=== PATIENT | female | born 1965 | race African-American/Black ===

== ENCOUNTER 2017-08-30 14:36 | Outpatient (CLI) | payer BC | END 2017-08-30 14:37 | disposition home or self-care (01) | LOC: CTENTCT 14:36 | PROVIDERS: ATTEND Specialist | DX: R51 Headache (principal) | CPT/HCPCS: 70486 ==

== ENCOUNTER 2017-09-25 16:07 | Outpatient (CLI) | payer BC | END 2017-09-25 16:08 | disposition home or self-care (01) | LOC: BICMRI 16:07 | PROVIDERS: ATTEND Obstetrics & Gynecology | DX: Z15.01 Genetic susceptibility to malignant neoplasm of breast (principal) | CPT/HCPCS: C8908 ==

== ENCOUNTER 2018-02-10 12:11 | Outpatient (CLI) | payer BC ==
--- NOTE | 2018-02-10 15:16 | MRI ---
MRI OF THE BILATERAL BREASTS WITHOUT AND WITH CONTRAST: History: 52-year-old female with genetic susceptibility to malignancy. Positive for BRCA. Comparison: 09-25-17 Technique: Multiplanar, multisequence MRI images were obtained of the bilateral breasts without and with IV cont rast. FINDINGS: Scattered fibroglandular breast tissue is seen. Minimal background parenchymal enhancement is seen. N o suspicious mass or suspicious enhancement is seen in either breasts. No axillary adenopathy is seen. No internal mammillary lymph nodes are identified. There are small fo ci of high T2 signal in the left lobe of the liver and adjacent the falciform ligament. It is difficu lt to see these lesions on the post contrast examination secondary to the artifact from the patient's heart. These may represent with small hemangiomas or cysts and are stable compared to the prior exam ination. No marrow signal abnormality is present. IMPRESSION: BIRADS category I - negative. Annual screening mammography is recommended. In addition, annual breast MRI is recommended given the BRCA positive status.
--- NOTE | 2018-02-10 16:15 | BD ---
DEXA BONE MINERAL DENSITY STUDY: HISTORY: Osteoporosis screening. COMPARISON: None. FINDINGS: Lumbar Spine: BMD (g/cm2) L1 0.884 T-Score: -1.0, 0.0 L2 0.841 T-Score: -1.7, -0.7 L3 0.928 T-Score: -1.4, -0.3 L4 0.930 T-Score: -1.2, -0.1 L1-L4 0.899 T-Score: -1.3, -0.3 WHO classification osteopenia. Femoral Neck: 0.830 T-Score: -0.2, 0.9 Total Femur: 1.066 T-Score: 1.0, 1.7 WHO classification normal. TEN-YEAR FRACTURE RISK: Major osteoporotic fracture 5.1% and hip fracture 0.1%. Impression: Osteopenia of the lumbar spine with fracture risk as above. POS: GERBER
== END 2018-02-10 12:12 | disposition home or self-care (01) ==
LOC: BICMRI 12:11
PROVIDERS: ATTEND Internal Medicine Hematology & Oncology
DX: Z12.31 Encounter for screening mammogram for malignant neoplasm of breast (principal); Z13.820 Encounter for screening for osteoporosis; Z15.01 Genetic susceptibility to malignant neoplasm of breast; Z78.0 Asymptomatic menopausal state; M85.88 Other specified disorders of bone density and structure, other site; Z80.3 Family history of malignant neoplasm of breast
CPT/HCPCS: 77063; 77067; 77080; C8908

== ENCOUNTER 2018-05-15 10:38 | Day surgery (SDC) | payer BC ==
[2018-05-14 16:03] VITALS: BMI 27.4
[~2018-05-15 10:38] MED LIST: Dexamethasone 20 MG/5 ML VIAL ONE; Lidocaine 1% PF 5 ML VIAL ONE; Ondansetron PF 4 MG/2 ML Vial ONE; PHENYLEPHRINE-NS 100 MCG/ML 10 ML SYRINGE ONE; PROPOFOL 200 MG/20 ML VIAL ONE; Rocuronium Bromide 10 MG/ML (10ML VIAL) ONE
[2018-05-15] MEDS ORDERED: Oxymetazoline HCl 0.05% ( 15 ML ) ONE (11:58)
[2018-05-15] MEDS ORDERED: Bacitracin Zinc Ointment 30 gm TUBE ONE (13:00)
[2018-05-15] MEDS ORDERED: Lidocaine 1% w/Epinephrine 1:100K 20 ML VIAL ONE (13:00)
[2018-05-15] MEDS ORDERED: EPINEPHrine 1 MG/ML AMP ONE (13:00)
[2018-05-15] MEDS ORDERED: Fentanyl 100 MCG/2 ML VIAL ONE ×4 (13:42→15:33)
[2018-05-15] MEDS ORDERED: methylPREDNISolone Acetate 40 mg/ml Vial ONE (13:42)
--- NOTE | 2018-05-16 09:34 | OP ---
DATE OF PROCEDURE: 05/15/2018 PREOPERATIVE DIAGNOSES: 1. Rhinogenic headache. 2. Right septal spur. 3. Deviated septum. 4. Hypertrophied inferior turbinates. POSTOPERATIVE DIAGNOSES: 1. Rhinogenic headache. 2. Right septal spur. 3. Deviated septum. 4. Hypertrophied inferior turbinates. PROCEDURES PERFORMED: 1. Septoplasty. 2. Bilateral nasal endoscopy with submucosal resection of inferior turbinates. PROCEDURE IN DETAIL: SEPTOPLASTY: After local anesthesia was infiltrated into the submucoperichondrial plane, a standard Suleman incision was made with a #15 blade down to the level of the septal cartilage. The caudal elevator was used to elevate the mucoperichondrium from the underlying cartilage. We then proceeded beyond the bony cartilaginous junction and elevated the bony periosteum as well. Great attention was paid to the spur to prevent rent formation in the septal flap. A transcartilaginous incision was then made, while preserving an adequate dorsal and caudal cartilaginous strut for tip support. The deformed cartilage was removed and disarticulated from the bony cartilaginous junction and maxillary crest. This was placed in saline and would later be crushed and returned to the mucoperichondrial envelope. We then elevated the contralateral periosteum from the bony cartilaginous region and removed the deformed portions of the bone and bony spurs. The cartilage was then crushed and placed back into the mucoperichondrial envelope and the mucosa was re-approximated with a quilting stitch composed of rapidly absorbent gut suture. The [place] incision was also closed with interrupted gut suture. At the completion of the case, Pérez splints were placed and suture secured to the caudal septum. BILATERAL NASAL ENDOSCOPY WITH SUBMUCOSAL RESECTION OF INFERIOR TURBINATES: After consent was obtained, the patient was identified, brought to the operating room, and placed on the operating room table in the supine position. Consent was obtained, notifying the patient of the possibility of additional infections, bleeding, brain injury, and eye/orbital injury. The patient was placed on the operating room table, and general endotracheal anesthesia and intravenous access was obtained. The patient was then positioned, prepped and draped for endoscopic sinus surgery. Nasal preparation included trimming nasal vestibular hairs and spraying in topical Afrin. We then placed Afrin topical solution on nasal pledgets and strategically located them intranasally. The perinasal mucosa was injected with 1% lidocaine with 1:100,000 epinephrine in the submucoperichondrial plane of the septum, lateral nasal wall, and anterior to the uncinate. The patient was then prepped and draped in a sterile fashion and positioned for endoscopic sinus surgery. With the 0-degree endoscope, the patient underwent systematic nasal endoscopy. There were no suspicious internasal masses or lesions identified. We then focused our attention to the osteomeatal complex region under the middle turbinate. The inferior turbinates were visualized with a 0 degree endoscope and outfractured with a Elias elevator. The inferior medial aspect was cauterized with the electrocautery. Hemostasis was obtained . After adequate airway was established, we turned our attention to the contralateral side and used a similar procedure. Again, a Elias elevator was used to outfracture inferior turbinates under endoscopic visualization. With a suction cautery, the free inferior medial aspect was cauterized under direct visualization along the length of the inferior turbinate. At this point, we then turned our attention to the contralateral side and proceeded with endoscopic sinus surgery. At the completion of the case, Rice keel splints were placed in the ethmoid cavities after the ethmoidectomy. There were no complications. The patient tolerated the procedure well and was discharged to the recovery room in stable condition prior to return to the preoperative day stay with ultimate discharge home. Prescriptions for pain medication and antibiotics were provided. The patient received intramuscular Depo-Medrol during the case. Job ID: [id number]
--- NOTE | 2018-05-16 16:44 | EKG ---
Test Reason : PREOP Blood Pressure : / mmHG Vent. Rate : 067 BPM Atrial Rate : 067 BPM P-R Int : 160 ms QRS Dur : 070 ms QT Int : 404 ms P-R-T Axes : 056 036 032 degrees QTc Int : 426 ms Normal sinus rhythm Normal ECG No previous ECGs available Confirmed by DR. Mariah MYRICK ([id number]) on 05/16/2018 4:44:00 PM Referred By: REGGIE Confirmed By:DR. Mariah MYRICK
== END 2018-05-15 16:40 | disposition home or self-care (01) ==
LOC: SDC 10:38
PROVIDERS: ATTEND Specialist
DX: J34.2 Deviated nasal septum (principal); J34.3 Hypertrophy of nasal turbinates; J34.89 Other specified disorders of nose and nasal sinuses; H92.09 Otalgia, unspecified ear; G44.209 Tension-type headache, unspecified, not intractable; Z79.899 Other long term (current) drug therapy; Z88.0 Allergy status to penicillin; Z88.2 Allergy status to sulfonamides
CPT/HCPCS: 85014; 93005; 93010; J0171; J1030; J2001; J3010

== ENCOUNTER 2019-02-13 13:51 | Outpatient (CLI) | payer BC ==
--- NOTE | 2019-02-13 15:30 | MMO ---
Bilateral MAMMO Bilat Screen [facility]. CLINICAL HISTORY: Patient is 53 years old and is seen for screening. The patient has no personal history of cancer. VIEWS: The views performed were: bilateral craniocaudal with tomosynthesis and bilateral mediolateral oblique with tomosynthesis. FILMS COMPARED: The present examination has been compared to prior imaging studies performed at [facility] on 12/29/2013, 12/31/2014, 01/21/2017 and 02/10/2018. This study has been interpreted with the assistance of computer-aided detection. MAMMOGRAM FINDINGS: There are scattered fibroglandular densities. There are no suspicious masses, suspicious calcifications, or new areas of architectural distortion. IMPRESSION: THERE IS NO MAMMOGRAPHIC EVIDENCE OF MALIGNANCY. A ROUTINE FOLLOW-UP MAMMOGRAM IN 1 YEAR IS RECOMMENDED. THE RESULTS OF THIS EXAM WERE SENT TO THE PATIENT. ACR BI-RADS Category 1 - Negative MAMMOGRAPHY NOTE: 1. A negative mammogram report should not delay a biopsy if a dominant of clinically suspicious mass is present. 2. Approximately 10% to 15% of breast cancers are not detected by mammography. 3. Adenosis and dense breasts may obscure an underlying neoplasm. Reported by: SANDY CLEMENTS MD Electonically Signed: [id number]
== END 2019-02-13 13:52 | disposition home or self-care (01) ==
LOC: BICMAMMO 13:51
PROVIDERS: ATTEND Obstetrics & Gynecology
DX: Z12.31 Encounter for screening mammogram for malignant neoplasm of breast (principal)
CPT/HCPCS: 77063; 77067

== ENCOUNTER 2020-04-08 13:23 | Outpatient (CLI) | payer BC | END 2020-04-08 13:24 | disposition home or self-care (01) | LOC: BICMAMMO 13:23 | PROVIDERS: ATTEND Obstetrics & Gynecology | DX: Z12.31 Encounter for screening mammogram for malignant neoplasm of breast (principal) | CPT/HCPCS: 77063; 77067 ==

== ENCOUNTER 2021-04-28 13:27 | Outpatient (CLI) | payer BC | END 2021-04-28 13:28 | disposition home or self-care (01) | LOC: BICMAMMO 13:27 | PROVIDERS: ATTEND Student in an Organized Health Care Education/Training Program | DX: Z12.31 Encounter for screening mammogram for malignant neoplasm of breast (principal); N63.42 Unspecified lump in left breast, subareolar | CPT/HCPCS: 77063; 77067 ==

== ENCOUNTER 2021-05-12 14:52 | Outpatient (CLI) | payer BC | END 2021-05-12 14:53 | disposition home or self-care (01) | LOC: BICMAMMO 14:52 | PROVIDERS: ATTEND Student in an Organized Health Care Education/Training Program | DX: N63.20 Unspecified lump in the left breast, unspecified quadrant (principal) | CPT/HCPCS: G0279 ==

== ENCOUNTER 2023-07-26 10:59 | Outpatient (CLI) | payer BC | END 2023-07-26 11:00 | disposition home or self-care (01) | LOC: BICMAMMO 10:59 | PROVIDERS: ATTEND Student in an Organized Health Care Education/Training Program | DX: Z12.31 Encounter for screening mammogram for malignant neoplasm of breast (principal); N63.21 Unspecified lump in the left breast, upper outer quadrant | CPT/HCPCS: 77063; 77067 ==

== ENCOUNTER 2023-08-06 10:54 | Outpatient (CLI) | payer BC | END 2023-08-06 10:55 | disposition home or self-care (01) | LOC: BICULT 10:54 | PROVIDERS: ATTEND Student in an Organized Health Care Education/Training Program | DX: N63.21 Unspecified lump in the left breast, upper outer quadrant (principal); N60.02 Solitary cyst of left breast ==

== ENCOUNTER 2023-11-19 13:42 | Outpatient (CLI) | payer BC | END 2023-11-19 13:43 | disposition home or self-care (01) | LOC: SCSMRI 13:42 | PROVIDERS: ATTEND Surgery | DX: K40.90 Unilateral inguinal hernia, without obstruction or gangrene, not specified as recurrent (principal); N89.8 Other specified noninflammatory disorders of vagina; N94.89 Other specified conditions associated with female genital organs and menstrual cycle | CPT/HCPCS: 36415; 72197; 82565 ==

== ENCOUNTER 2024-03-06 13:32 | Outpatient (CLI) | payer BC | END 2024-03-06 13:33 | disposition home or self-care (01) | LOC: BICULT 13:32 | PROVIDERS: ATTEND Student in an Organized Health Care Education/Training Program | DX: R92.8 Other abnormal and inconclusive findings on diagnostic imaging of breast (principal) | CPT/HCPCS: G0279 ==

== ENCOUNTER 2024-04-21 08:42 | Outpatient (CLI) | payer BC ==
[2024-04-21] MEDS ORDERED: Regadenoson 0.4 MG/5 ML SYRINGE ONE (10:01)
== END 2024-04-21 08:43 | disposition home or self-care (01) ==
LOC: NM 08:42
PROVIDERS: ATTEND Student in an Organized Health Care Education/Training Program
DX: Z01.818 Encounter for other preprocedural examination (principal); R94.39 Abnormal result of other cardiovascular function study
CPT/HCPCS: 78452; 93017; A9502; J2785